=== PATIENT | male | born 1995 | race Caucasian/White ===

== ENCOUNTER 2021-05-22 12:52 | Observation (INO) ==
[2021-05-22] MEDS ORDERED: Isovue-370 500 ML BOTTLE IVP ONE (14:19)
[2021-05-22] MEDS ORDERED: Ketorolac 30 MG/ML VIAL IVP ONE (14:19)
[2021-05-22] MEDS ORDERED: Ondansetron 4 MG/2 ML VIAL IVP ONE (14:19)
[2021-05-22 14:21] LABS: Basophils % 0.2 %; Eosinophils # 0.1 K/mcL (0.0-0.6); Eosinophils % 0.5 %; Hematocrit 44.3 % (37.5-50.1); Hemoglobin 14.5 g/dL (12.9-16.9); Immature Granulocytes % 0.5 % (0-4); Lymphocytes # 1.1 K/mcL (0.6-4.6); Lymphocytes % 9.6 %; Mean Corpuscular HGB Conc 32.7 g/dL (31.6-35.5); Mean Corpuscular Hemoglobin 27.2 pg (28.0-33.3); Mean Corpuscular Volume 83.1 fL (83.0-100.0); Mean Platelet Volume 9.7 fL (9.4-12.4); Monocytes # 0.6 K/mcL (0.0-1.3); Monocytes % 5.7 %; Neutrophils # 9.2 K/mcL (1.6-8.9); Platelet Count 192 K/mcL (140-400); Red Blood Count 5.33 M/mcL (4.19-5.50); Red Cell Distribution Width 12.4 % (11.5-14.5); Segmented Neutrophils % 83.5 %
[2021-05-22 14:30] LABS: Amorphous Sediment,Urine Few per hpf (None-Few); Bilirubin,Urine Negative (Negative); Blood,Urine Large (Negative); Clarity,Urine Turbid (Clear); Color,Urine Light-Yellow (Yellow); Glucose,Urine (UA) Normal (Normal); Ketones,Urine Trace mg/dL (Negative); Leukocyte Esterase,Urine Negative (Negative); Mucus,Urine Few per lpf (None-Few); Nitrite,Urine Negative (Negative); PH,Urine 6.5 pH Units (5.0-8.0); Protein,Urine Trace mg/dL (Neg-Trace); RBC,Urine TNTC per hpf (0-3); Specific Gravity,Urine 1.022 (1.010-1.025); Urobilinogen,Urine Normal (Normal); WBC,Urine 0-3 per hpf (0-3)
[2021-05-22 14:42] LABS: Alanine Aminotransferase 22 Units/L (7-52); Albumin 4.6 g/dL (3.5-5.7); Albumin/Globulin Ratio 1.6 (1.1-2.2); Alkaline Phosphatase 64 Units/L (34-104); Amylase 39 Units/L (29-103); Aspartate Amino Transferase 21 Units/L (13-39); BUN/Creatinine Ratio 18 (6-26); Bilirubin,Direct 0.1 mg/dL (0.0-0.2); Bilirubin,Indirect 0.4 mg/dL (0.0-1.0); Bilirubin,Total 0.5 mg/dL (0.3-1.0); Blood Urea Nitrogen 17 mg/dL (6-20); Calcium 9.2 mg/dL (8.6-10.3); Carbon Dioxide 25 mEq/L (23-29); Chloride 105 mEq/L (98-107); Globulin 2.8 g/dL (2.4-3.5); Glucose 165 mg/dL (70-105); Lipase 20 Units/L (11-82); Osmolality,Calculated 291 (280-300); Potassium 3.8 mEq/L (3.5-5.1); Sodium 138 mEq/L (136-145); Total Protein 7.4 g/dL (6.4-8.9); eGFR For African Americans > 60 (> 60); eGFR For Non-African Americans > 60 (> 60)
[2021-05-22] MEDS ORDERED: cefTRIAXone 1,000 MG in 0.9 % Sodium Chloride Mini Bag 100 ML IVPB ONE (15:43)
[2021-05-22] MEDS ORDERED: Ondansetron 4 MG/2 ML VIAL IVP PRN (16:47)
[2021-05-22] MEDS ORDERED: Naloxone 0.4 MG/ML INJ IVP PRN (16:47)
[2021-05-22] MEDS ORDERED: Acetaminophen 325 MG TABLET PO PRN (16:50)
[2021-05-22] MEDS ORDERED: Ketorolac 15 MG/ML VIAL IVP PRN (16:50)
[2021-05-22] MEDS: 0.9 % Sodium Chloride 1,000 ML IVC SCH (17:25)
[2021-05-23] MEDS: 0.9 % Sodium Chloride 1,000 ML IVC SCH (05:19)
[2021-05-23 06:52] LABS: Basophils % 0.6 %; Eosinophils # 0.1 K/mcL (0.0-0.6); Eosinophils % 1.8 %; Hematocrit 39.5 % (37.5-50.1); Immature Granulocytes % 0.4 % (0-4); Lymphocytes # 1.9 K/mcL (0.6-4.6); Lymphocytes % 26.7 %; Mean Corpuscular HGB Conc 32.4 g/dL (31.6-35.5); Mean Corpuscular Hemoglobin 27.3 pg (28.0-33.3); Mean Corpuscular Volume 84.2 fL (83.0-100.0); Mean Platelet Volume 9.9 fL (9.4-12.4); Monocytes # 0.6 K/mcL (0.0-1.3); Monocytes % 8.4 %; Neutrophils # 4.4 K/mcL (1.6-8.9); Platelet Count 190 K/mcL (140-400); Red Blood Count 4.69 M/mcL (4.19-5.50); Red Cell Distribution Width 12.7 % (11.5-14.5); Segmented Neutrophils % 62.1 %
[2021-05-23 06:53] LABS: Hemoglobin 12.8 g/dL (12.9-16.9)
[2021-05-23 07:10] LABS: BUN/Creatinine Ratio 16 (6-26); Blood Urea Nitrogen 15 mg/dL (6-20); Calcium 8.2 mg/dL (8.6-10.3); Carbon Dioxide 25 mEq/L (23-29); Chloride 108 mEq/L (98-107); Glucose 85 mg/dL (70-105); Osmolality,Calculated 288 (280-300); Sodium 139 mEq/L (136-145); eGFR For African Americans > 60 (> 60); eGFR For Non-African Americans > 60 (> 60)
[2021-05-23] MEDS ORDERED: cefTRIAXone 1,000 MG in Water for inj. (sterile) 10 ML IVP SCH (10:00)
[2021-05-23] MEDS ORDERED: Isovue-300 50ML VIAL ONE (14:45)
[2021-05-23] MEDS ORDERED: Ondansetron 4 MG/2 ML VIAL ONE (15:08)
[2021-05-23] MEDS ORDERED: Lidocaine -MPF 2% 2 ML VIAL ONE (15:08)
[2021-05-23] MEDS ORDERED: Ketorolac 30 MG/ML VIAL ONE (15:08)
[2021-05-23] MEDS ORDERED: *HR* FentaNYL (PF) 100 MCG/2 ML VIAL ONE (15:08)
[2021-05-23] MEDS ORDERED: *HR* Propofol 200 MG/20 ML VIAL IVP ONE (15:09)
[2021-05-23] MEDS ORDERED: *HR* Midazolam HCl 2 MG/2 ML VIAL ONE (15:09)
[2021-05-23] MEDS ORDERED: Ondansetron 4 MG/2 ML VIAL IVP PRN ×2 (15:18→17:33)
[2021-05-23] MEDS ORDERED: *HR* HYDROmorphone PF 0.5 MG/0.5 ML SYRINGE IVP PRN (15:18)
[2021-05-23] MEDS ORDERED: Promethazine 6.25 MG in Water for inj. (sterile) 20 ML IVPB PRN (15:18)
[2021-05-23] MEDS ORDERED: *HR* OxyCODONE Immed Rel 5 MG TABLET PO PRN (15:18)
[2021-05-23 16:40] VITALS: BP 107/61; PULSE 62; TEMP 98; O2SAT 98
[2021-05-23] MEDS ORDERED: Naloxone 0.4 MG/ML INJ IVP PRN (17:33)
[2021-05-23] MEDS ORDERED: Hyoscyamine SL 0.125 MG TAB.SUBL SL PRN (17:33)
[2021-05-23] MEDS ORDERED: Acetaminophen 325 MG TABLET PO PRN (17:33)
[2021-05-23] MEDS ORDERED: Ketorolac 15 MG/ML VIAL IVP PRN (17:33)
[2021-05-23] MEDS ORDERED: *HR* OxyCODONE/APAP 5/325 TABLET PO PRN (17:33)
[2021-05-23] MEDS ORDERED: 0.9 % Sodium Chloride 1,000 ML IVC SCH (17:33)
[2021-05-23] MEDS ORDERED: *HR* Belladonna Alkaloids/Opium 30 MG RECTAL SUPPOSITORY RC PRN (17:33)
[2021-05-24] MEDS ORDERED: cefTRIAXone 1,000 MG in Water for inj. (sterile) 10 ML IVP SCH (09:00)
== END 2021-05-23 19:06 | disposition home or self-care (01) ==
LOC: EMEROOARM 12:52 → 3BNU 12:52 → SUATTDRO 16:44 → 3BNU 17:56
PROVIDERS: ADMIT Internal Medicine; ATTEND Internal Medicine